=== PATIENT | male | born 2000 | race Caucasian/White ===

== ENCOUNTER 2022-09-23 08:11 | Day surgery (SDC) | payer SELFPAY ==
[2022-09-22 09:05] VITALS: BMI 20.2
[2022-09-23] MEDS ORDERED: Neomycin-Polymyxin 1 ML AMP ONE (08:32)
[2022-09-23] MEDS ORDERED: Bupivacaine PF 0.5% 30 ML VIAL ONE (08:32)
[2022-09-23] MEDS ORDERED: PROPOFOL 20 ML ONE ×2 (09:01→09:50)
[2022-09-23] MEDS ORDERED: Dexamethasone 20 MG/5 ML VIAL ONE (09:02)
[2022-09-23] MEDS ORDERED: Lidocaine 1% PF 5 ML VIAL ONE (09:02)
[2022-09-23] MEDS ORDERED: Ondansetron PF 4 MG/2 ML Vial ONE (09:02)
[2022-09-23] MEDS ORDERED: Fentanyl 100 MCG/2 ML VIAL ONE ×4 (09:02→12:07)
[2022-09-23] MEDS ORDERED: CEFAZOLIN 2 GM VIAL ONE (09:41)
[2022-09-23] MEDS ORDERED: Meperidine HCl/PF 25 MG/ML VIAL ONE (11:36)
[2022-09-23] MEDS ORDERED: Ketorolac Tromethamine 30 MG/ML VIAL ONE (11:36)
[2022-09-23] MEDS ORDERED: Ropivacaine 0.5% HCl/PF (150 MG/30 ML VIAL) ONE (12:13)
== END 2022-09-23 13:35 | disposition home or self-care (01) ==
LOC: CSHSDC 08:11
PROVIDERS: ATTEND Orthopaedic Surgery
PROC: 0QSL04Z Reposition Right Tarsal with Internal Fixation Device, Open Approach (ICD-10-PCS; principal; 2022-09-23)
DX: S92.121A Displaced fracture of body of right talus, initial encounter for closed fracture (principal); Z87.891 Personal history of nicotine dependence; Z79.899 Other long term (current) drug therapy; X50.1XXA Overexertion from prolonged static or awkward postures, initial encounter; Y93.55 Activity, bike riding
CPT/HCPCS: C1713; C1781; J1100; J1885; J2175; J2405; J2704; J2795; J3010; S0020